=== PATIENT | female | born 1955 | race Caucasian/White ===

== ENCOUNTER 2025-04-11 13:21 | Emergency (ER) | payer MEDICARE, OTHER, SELFPAY ==
[2025-04-11 13:22] VITALS: BP 156/69
[2025-04-11 13:46] LABS: % Basophils 0.2 % (0-2); % Immature Granulocytes 0.2 % (0-0.5); % Lymphocytes 12.3 % (20.5-51.1); % Monocytes 6.1 % (1.7-9.3); % Neutrophils 81.2 % (42.2-75.2); Absolute Lymphocytes 0.6 10^3/uL (1.2-3.4); Absolute Monocytes 0.3 10^3/uL (0.1-0.6); Absolute Neutrophils 4.2 10^3/uL (1.4-6.5); Hematocrit 37.5 % (37.0-47.0); Mean Corp Hgb Conc. 34.7 g/dL (33.0-37.0); Mean Corpuscular Hgb 31.6 pg (27.0-31.0); Mean Corpuscular Volume 91.2 fL (81.0-99.0); Mean Platelet Volume 9.4 fL (7.4-10.4); Nucleated Red Blood Cells % 0 %; Platelet Count 273 10^3/uL (130-400); Red Blood Cell Count 4.11 10^6/uL (4.20-5.40); Red Cell Dist. Width 12.8 % (11.5-14.5); White Blood Cell Count 5.1 10^3/uL (4.8-10.8)
[2025-04-11 14:02] LABS: Blood Urea Nitrogen 14 mg/dl (7-17); Calcium 9.9 mg/dl (8.4-10.2); Carbon Dioxide 23 mmol/L (22-30); Chloride 107 mmol/L (98-107); Glucose 98 mg/dl (70-99); Sodium 139 mmol/L (135-145); eGFR > 60.00
[2025-04-11 17:29] VITALS: BP 130/72
[2025-04-11] MEDS: NSS 1000 IV (18:29)
[2025-04-11] MEDS: PEPCID 20 MG IV (18:34)
[2025-04-11] MEDS: REGLAN 10 MG IV (18:34)
[2025-04-11] MEDS: ZOFRAN 4 MG IV (18:34)
[2025-04-11 18:51] LABS: ALT (SGPT) 34 U/L (0-35); AST (SGOT) 25 U/L (14-36); Albumin 4.7 g/dl (3.5-5.0); Alkaline Phosphatase 68 U/L (38-126); Blood Urea Nitrogen 16 mg/dl (7-17); Calcium 9.6 mg/dl (8.4-10.2); Carbon Dioxide 27 mmol/L (22-30); Chloride 106 mmol/L (98-107); Glucose 100 mg/dl (70-99); Lipase 37 U/L (23-300); Potassium 3.8 mmol/L (3.5-5.1); Sodium 139 mmol/L (135-145); Total Protein 7.1 g/dl (6.3-8.2); eGFR > 60.00
--- NOTE | 2025-04-11 20:13 | ED.GENMED ---
History of Present Illness
General
Chief Complaint: Abdominal Symptoms
Source: patient
Exam Limitations: none
Time Seen by Provider: 04/11/25 17:27
Nursing documentation reviewed up to this point in time: agreed with
History of Present Illness
History of Present Illness:
69-year-old female presenting to the emergency department today with concerns of nausea vomiting starting last night. Went to urgent care was sent here due to ongoing symptoms. Has a mild headache chills but no fevers. No diarrhea. No
significant abdominal pain that is ongoing.
Past History
Past History
ED Past Medical History: None
ED Past Surgical History: None
Review of Systems
Review of Systems
Allergies reviewed?: Yes
All Other Systems: ROS reviewed and negative except as documented in HPI and ROS
Phy Exam
Physical Exam
Physical Exam:
GENERAL: Alert , in no apparent distress
EYE: pupils equal and reactive
NECK: Supple, no significant adenopathy.
ENT: o/p clr, mmm.
CARDIAC: Regular rate and rhythm .
LUNGS: Clear breath sounds bilaterally, no acute respiratory distress, no wheezes/rales/rhonchi
ABDOMEN: Soft, without focal tenderness, no r/g, no cvat
NEUROLOGICAL: Alert and oriented, no focal neuro deficits
SKIN: Warm and dry, skin intact.
MUSCULOSKELETAL: No edema, well perfused.
PSYCH: Normal and appropriate interaction.
Course
Orders/Labs/Results
Orders:
Orders
04/11/25 13:34
Basic Metabolic Panel Urgent
Complete Blood Count/With Diff Urgent
04/11/25 18:15
EKG [Electrocardiogram (*1)] Urgent
Reason for Study: Abdominal Pain
EKG- Treatment ONCE
Famotidine [Pepcid] 20 mg IV NOW STA
Ondansetron Injectable [Zofran] 4 mg IV NOW STA
04/11/25 18:16
0.9% Sodium Chloride 1000 ml [Nss] 1,000 ml IV BOLUS
04/11/25 18:27
CMP [Comprehensive Metabolic Panel] Urgent
Lipase Urgent
04/11/25 18:31
Metoclopramide [Reglan] 10 mg IV NOW STA
04/11/25 18:32
Metoclopramide [Reglan] 10 mg .ROUTE .STK-MED ONE
Abnormal Lab Results
04/11/25 04/11/25
13:34 18:27
RBC 4.11 L 10^6/uL
(4.20-5.40)
MCH 31.6 H pg
(27.0-31.0)
Absolute Lymphs (auto) 0.6 L 10^3/uL
(1.2-3.4)
Neutrophils % 81.2 H %
(42.2-75.2)
Lymphocytes % 12.3 L %
(20.5-51.1)
Glucose 100 H mg/dl
(70-99)
04/11/25 13:34
04/11/25 18:27
Vital Signs
Initial and Last Documented VS:
Initial Vital Signs
Temp Pulse Resp BP Pulse Ox
98.5 F 56 16 156/69 96
04/11/25 13:22 04/11/25 13:22 04/11/25 13:22 04/11/25 13:22 04/11/25 13:22
Last Documented Vital Signs
Temp Pulse Resp BP Pulse Ox
98.5 F 79 11 130/72 99
04/11/25 13:22 04/11/25 17:30 04/11/25 17:30 04/11/25 17:29 04/11/25 17:30
MDM/Problems Addressed
MDM/Problems Addressed:
69-year-old female presenting to the emergency department today with concerns of nausea vomiting since last night. No chest pain no significant ongoing abdominal pain no fevers vital signs are normal arrival. Labs unremarkable patient was given
Zofran and fluids with improving symptoms. Patient was reassessed and comfortable and would like to go at this time. She was given return precautions otherwise stable for discharge.
*Critical Care Note
Total Time (30-74mins, 75-104mins- exclusive of procedures): Not Applicable
ED Attending Note
-
Portions of this chart may have been created with voice recognition software.� Occasional wrong word or��sound alike� substitutions may have occurred due to the inherent limitations of voice recognition software.
Discharge Plan
Departure
Patient Disposition: Home (Routine Discharge)
Date of Disposition: 04/11/25
Time of Disposition: 20:15
Patient with high blood pressure during this ER visit?: No
Condition: Good
Covid-19: Not Applicable
Discharge Problem:
Vomiting
Instructions: Nausea and Vomiting, Adult (DC)
Prescriptions:
New
ondansetron 4 mg tablet,disintegrating
4 mg PO Q6H PRN (Reason: nausea and vomiting) Qty: 7 0RF
No Action
clonazepam 1 MG tablet
1 mg PO PRN (Reason: sleep)
EFFEXOR
225 mg PO DAILY
Referrals:
Gertrudis Butler MD [Family Provider] -
Activity Restrictions/Additional Instructions:
You came to the emergency department today for concerns of nausea and vomiting. Here you had a reassuring assessment. Please use the Zofran as needed. Return for any worsening, new or concerning symptoms.
Interventions
Interventions:
*Risk Screen - Suicide Last Done: 04/11/25 13:22
*General Assessment Last Done: 04/11/25 18:12
*Neglect/Abuse Screening Last Done: 04/11/25 13:22
*ED COVID-19 Vaccine History Last Done: 04/11/25 18:12
PM-Wcpszt-Wothegaewq Assessment Last Done: 04/11/25 17:36
Discharge Date and Time
Print Language: MAORI
== END 2025-04-11 20:38 | disposition home or self-care (01) ==
LOC: EMR 13:21
PROVIDERS: Physician Assistant; EMERGENCY PHYSICIAN Student in an Organized Health Care Education/Training Program; FAMILY PHYSICIAN Student in an Organized Health Care Education/Training Program
DX: R11.2 Nausea with vomiting, unspecified (principal); R51.9 Headache, unspecified
CPT/HCPCS: 99283; 96374; 96375; 96361; 80048; 80053; 83690; 85025; 93005